=== PATIENT | male | born 1985 | race Hispanic/Latino ===

== ENCOUNTER 2019-03-20 08:44 | Emergency (ER) | payer OTHER, SELFPAY ==
[2019-03-20] MEDS ORDERED: Bicillin LA 2.4 MILL.UNITS/4 ML SYRINGE ONE (09:24)
[2019-03-20] MEDS ORDERED: Bicillin LA 1.2 MILLION UNITS/2 ML SYRINGE IM SCH (09:45)
[2019-03-20] MEDS ORDERED: Bicillin LA 1.2 MILLION UNITS/2 ML SYRINGE ONE (09:55)
== END 2019-03-20 10:28 | disposition home or self-care (01) ==
LOC: ERS 08:44
DX: J03.90 Acute tonsillitis, unspecified (principal)
CPT/HCPCS: 87081; 87430; 96372; 99283; J0561